=== PATIENT | female | born 1970 | race Caucasian/White ===

== ENCOUNTER 2017-07-20 20:39 | Emergency (ER) | payer OTHER ==
[~2017-07-20] VITALS: Ht 160 cm; Wt 81.7 kg
[~2017-07-20 20:39] MED LIST: ALPRAZOLAM1 MG PO; ALPRAZOLAM2 MG PO; AMBIEN10 MG PO; AMOXICILLIN500 MG PO; Ambien PO; B-12 1,000 MCG1 EACH SL; BENTYL20 MG PO; BUSPAR10 MG PO; BUTALB-APAP-CA1 EACH PO; Bentyl PO; CALCIUM CITRAT200 MG PO; CARAFATE1 GM PO; CENTRUM ULTRA1 EAC1 PO; CLONIDINE HCL0.1 MG PO; CREON 241 CAPSULE PO; CREON DR 12,001 EAC1 PO; CREON PO; CREON1 CAPSULE PO; CYANOCOBALAM1000 MCG PO; CYANOCOBALAM1000 MCG SL; DIAZEPAM5 MG PO; DILAUDID2 MG PO; DILAUDID4 MG PO; DILAUDID8 MG PO; Dilaudid PO; ENDOCET 5-3251 EACH PO; EXCEDRIN MIGRAI1 TAB PO; FIORICET,ESG1 TABLET PO; Feosol PO; GENERLAC10 GM/15 M PO; HYDROMORPHONE HC4 MG PO; HYDROMORPHONE HC8 MG PO; Habitrol,Nicoderm CQ TD; IRON325 M1 PO; ISORDIL5 MG PO; LEXAPRO10 MG PO; LORTAB 5-325 M1 EACH PO; NEXIUM20 MG PO; NICOTINE PATCH1 EAC1 TD; NICOTINE PATCH1 EAC2 TD; ONDANSETRON ODT4 MG PO; OXYCODONE HCL10 MG PO; OXYCODONE HCL15 MG PO; PERCOCET 5/31 TABLET PO; PHENADOZ12.5 MG PR; PHENERGAN-CODE120 ML PO; PHENERGAN25 MG PR; POTASSIUM CHLO20 ME2 PO; POTASSIUM-9999 MG PO; PREDNISONE20 MG PO; PRILOSEC20 MG PO; PROMETHAZINE HC25 M1 PO; PROTONIX40 MG PO; Phenergan PO; Protonix PO; RELPAX20 MG PO; SUCRALFATE1 GM/10 ML PO; THERAGRAN1 TABLET PO; TRAMADOL HCL50 MG PO; Tofranil PO; VALIUM5 MG PO; VITAMIN B-12500 MC2 PO; Valium PO; Vitamin B Complex PO; Vitamin B-12 SC; XANAX1 MG PO; ZANTAC150 MG PO; ZOFRAN ODT4 MG PO; ZOFRAN ODT8 MG PO; ZOFRAN4 MG PO; ZOFRAN8 M1 PO; ZOFRAN8 MG PO; ZOLPIDEM TARTRA10 MG PO; [UNRECOGNIZED DRUG - OTHER] PO
[2017-07-20 21:25] LABS: HEMATOCRIT 35.8 % (36.0-46.0); MCH 31.9 PG (29.0-34.0); MCHC 34.6 G/DL (30.0-36.0); MEAN PLAT.VOLUME 8.9 uM^3 (9.5-12.4); PLATELET COUNT 207 K/uL (156-360); RBC DIS.WIDTH-CV 12.7 % (11.8-14.6); RBC DIS.WIDTH-SD 42.6 % (39-53); RED BLOOD COUNT 3.89 M/uL (3.80-5.20); WHITE BLOOD COUNT 9.8 K/uL (4.1-10.2)
[2017-07-20 21:33] LABS: CHLORIDE 102 mEq/L (99-109); POTASSIUM 3.7 mEq/L (3.7-5.4); SODIUM 137 mEq/L (136-147)
[2017-07-20 21:35] LABS: GLUCOSE 128 mg/dL (70-99)
[2017-07-20 21:36] LABS: ANION GAP 10 MEQ/L (2-14)
[2017-07-20 21:37] LABS: TOTAL BILIRUBIN 0.5 mg/dL (0.0-1.0)
[2017-07-20 21:39] LABS: ALKALINE PHOSPHATASE 77 IU/L (3-129); GFR ESTIMATE (CALCULATED) > 59 mL/min/
[2017-07-20 21:40] LABS: UREA NITROGEN (BUN) 6 mg/dL (9-23)
[2017-07-20 21:42] LABS: LIPASE 11 U/L (1.0-51.0)
[2017-07-20] MEDS ORDERED: ZOFRAN ODT4 MG PO (22:21)
[2017-07-20] MEDS ORDERED: ROXICODONE5 MG PO (22:25)
[2017-07-20 22:55] VITALS: BP 00/00
== END 2017-07-20 22:58 | disposition home or self-care (01) ==
LOC: EME 20:39
PROVIDERS: Nurse Practitioner Family
DX: K59.00 Constipation, unspecified (principal); F41.9 Anxiety disorder, unspecified; Z98.84 Bariatric surgery status; F17.200 Nicotine dependence, unspecified, uncomplicated; Z88.8 Allergy status to other drugs, medicaments and biological substances
CPT/HCPCS: 74176; 80053; 81003; 83690; 85027; 99281; 99284; J2270; J2405; J7030